=== PATIENT | female | born 2000 | race Caucasian/White ===

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

== ENCOUNTER 2018-04-08 14:03 | Emergency (ER) | payer OTHER ==
[~2018-04-08] VITALS: Ht 157.5 cm; Wt 70.0 kg
[~2018-04-08 14:03] MED LIST changes: +CIPROFLOXACN500 MG PO
[2018-04-08] MEDS ORDERED: TRIAMCINOLON0.11 EX (14:44)
[2018-04-08 14:50] VITALS: BP 101/62
== END 2018-04-08 14:50 | disposition home or self-care (01) | DRG 607 ==
LOC: ED 14:03
DX: L25.9 Unspecified contact dermatitis, unspecified cause (principal)

== ENCOUNTER 2018-05-28 16:04 | Emergency (ER) | payer OTHER ==
[~2018-05-28] VITALS: Ht 157.5 cm; Wt 73.6 kg
[~2018-05-28 16:04] MED LIST changes: +TRIAMCINOLON0.11 EX
[2018-05-28 16:40] VITALS: BP 104/61
== END 2018-05-28 16:40 | disposition home or self-care (01) | DRG 607 ==
LOC: ED 16:04
DX: L29.9 Pruritus, unspecified (principal); V48.6XXA Car passenger injured in noncollision transport accident in traffic accident, initial encounter

== ENCOUNTER 2019-02-13 14:15 | Emergency (ER) | payer OTHER ==
[~2019-02-13] VITALS: Ht 157.5 cm; Wt 70.0 kg
[2019-02-13] MEDS ORDERED: NAPROSYN500 MG PO (15:02)
[2019-02-13 15:04] VITALS: BP 98/46
== END 2019-02-13 15:11 | disposition home or self-care (01) | DRG 563 ==
LOC: ED 14:15
DX: S93.602A Unspecified sprain of left foot, initial encounter (principal); W18.30XA Fall on same level, unspecified, initial encounter; Y93.89 Activity, other specified; Y92.009 Unspecified place in unspecified non-institutional (private) residence as the place of occurrence of the external cause

== ENCOUNTER 2019-06-30 12:49 | Emergency (ER) | payer OTHER ==
[~2019-06-30] VITALS: Ht 157.5 cm; Wt 75.0 kg
[2019-06-30 13:36] LABS: IMMATURE GRANULOCYTES 0.4 % (0.0-5.0); MEAN CORPUSCULAR HGB 29.8 pG CALC (26.0-32.0); MEAN CORPUSCULAR HGB CONC 33.1 g/L CALC (32.0-36.0); NEUT# 5.44 thou/uL (2.00-7.15); RED BLOOD COUNT 4.67 mill/uL (4.20-5.60); RED CELL DISTRI WIDTH 12.3 % (11.5-15.5)
[2019-06-30 13:41] LABS: URINE BILIRUBIN - DIPSTICK NEGATIVE (NEGATIVE); URINE BLOOD DIPSTICK SMALL (NEGATIVE); URINE COLOR YELLOW; URINE GLUCOSE - DIPSTICK NEGATIVE (NEGATIVE); URINE KETONE NEGATIVE (NEGATIVE); URINE LEUK ESTERASE NEGATIVE (NEGATIVE); URINE NITRITE - DIPSTICK NEGATIVE (Negative); URINE PROTEIN - DIPSTICK NEGATIVE (NEG-TRACE); URINE UROBILINOGEN - DIPSTICK 0.2 E.U./dL (0.2)
[2019-06-30 13:42] LABS: HEMOGLOBIN 13.9 g/dl (12.0-16.0); MEAN CELL VOLUME 89.9 fL CALC (80.0-100.0)
[2019-06-30 13:51] LABS: BUN 9 mg/dL (7-17); BUN/CREATININE RATIO 13 (12-20 (CALC)); CHLORIDE 107 mmol/l (95-108); CREATININE 0.7 mg/dL (0.5-1.0); GFR > 60 ML/MIN (>=60 (CALC)); GFR FOR AFR.AMER. > 60 ML/MIN (>=60 (CALC)); POTASSIUM 4.3 mmol/l (3.5-5.1); SODIUM 140 mmol/l (137-146)
[2019-06-30 13:53] LABS: ANION GAP 10 (6-22 (CALC)); CARBON DIOXIDE 27 mmol/l (22-30)
[2019-06-30 14:30] LABS: URINE SQUAMOUS EPITHELIAL CELL FEW EPI/hpf (0-FEW)
[2019-06-30 16:20] VITALS: BP 113/86
== END 2019-06-30 16:30 | disposition home or self-care (01) ==
LOC: ED 12:49
PROVIDERS: Family Medicine
DX: N93.9 Abnormal uterine and vaginal bleeding, unspecified (principal)

== ENCOUNTER 2019-12-15 | Emergency (ER) | payer SELFPAY ==
[2019-12-15 21:42] LABS: URINE BILIRUBIN - DIPSTICK NEGATIVE (NEGATIVE); URINE BLOOD DIPSTICK NEGATIVE (NEGATIVE); URINE CLARITY CLEAR; URINE COLOR YELLOW; URINE GLUCOSE - DIPSTICK NEGATIVE (NEGATIVE); URINE KETONE NEGATIVE (NEGATIVE); URINE LEUK ESTERASE NEGATIVE (Negative); URINE NITRITE - DIPSTICK NEGATIVE (Negative); URINE PH 7.5 (4.5-8.0); URINE PROTEIN - DIPSTICK NEGATIVE (NEG-TRACE); URINE UROBILINOGEN - DIPSTICK 0.2 E.U./dL (0.2)
[2019-12-15 22:19] LABS: HEMATOCRIT 40.4 % (37.0-47.0); HEMOGLOBIN 13.5 g/dl (12.0-16.0); IMMATURE GRANULOCYTES 0.1 % (0.0-5.0); MEAN CELL VOLUME 88.6 fL CALC (80.0-100.0); MEAN CORPUSCULAR HGB 29.6 pG CALC (26.0-32.0); MEAN CORPUSCULAR HGB CONC 33.4 g/dL CAL (32.0-36.0); NEUT# 6.86 thou/uL (2.00-7.15); RED BLOOD COUNT 4.56 mill/uL (4.20-5.60); RED CELL DISTRI WIDTH 12.4 % (11.5-15.5)
[2019-12-15 22:46] LABS: ALBUMIN 4.2 g/dL (3.2-5.0); ALKALINE PHOSPHATASE 64 u/l (38-126); ANION GAP 10 (6-22 (CALC)); BUN 6 mg/dL (7-17); BUN/CREATININE RATIO 11 (12-20 (CALC)); CARBON DIOXIDE 26 mmol/l (22-30); CHLORIDE 105 mmol/l (95-108); CREATININE 0.6 mg/dL (0.5-1.0); GFR > 60 ML/MIN (>=60 (CALC)); GFR FOR AFR.AMER. > 60 ML/MIN (>=60 (CALC)); POTASSIUM 3.8 mmol/l (3.5-5.1); SGOT/AST 23 u/l (14-36); SODIUM 137 mmol/l (137-146); TOTAL PROTEIN 6.7 g/dL (6.3-8.2)
[2019-12-15 22:48] LABS: BILIRUBIN, TOTAL 0.9 mg/dL (0.0-1.4)
[2019-12-15 23:03] LABS: BETA-HCG, QUANT(RESULT NUMBER) 1144 mIU/mL
== END 2019-12-15 23:20 | disposition home or self-care (01) | DRG 833 ==
PROVIDERS: Emergency Medicine
DX: O46.91 Antepartum hemorrhage, unspecified, first trimester (principal); Z3A.00 Weeks of gestation of pregnancy not specified

== ENCOUNTER 2020-11-15 11:15 | Emergency (ER) | payer SELFPAY ==
[~2020-11-15] VITALS: Ht 160 cm; Wt 60.0 kg
[2020-11-15] MEDS ORDERED: AMOX/K CLAV875 M1 PO (12:26)
[2020-11-15 12:45] VITALS: BP 112/74
== END 2020-11-15 12:45 | disposition home or self-care (01) | DRG 153 ==
LOC: ED 11:15
DX: J06.9 Acute upper respiratory infection, unspecified (principal); H72.91 Unspecified perforation of tympanic membrane, right ear; Z20.822 Contact with and (suspected) exposure to COVID-19; Z20.828 Contact with and (suspected) exposure to other viral communicable diseases

== ENCOUNTER 2020-11-22 21:38 | Emergency (ER) | payer SELFPAY ==
[~2020-11-22] VITALS: Ht 160 cm; Wt 59.0 kg
[~2020-11-22 21:38] MED LIST changes: +AMOX/K CLAV875 M1 PO
[2020-11-22 23:35] VITALS: BP 102/60
== END 2020-11-22 23:35 | disposition home or self-care (01) | DRG 605 ==
LOC: ED 21:38
DX: S50.02XA Contusion of left elbow, initial encounter (principal); W01.0XXA Fall on same level from slipping, tripping and stumbling without subsequent striking against object, initial encounter; Y92.89 Other specified places as the place of occurrence of the external cause; Y99.0 Civilian activity done for income or pay

== ENCOUNTER 2021-04-04 23:18 | Emergency (ER) | payer MEDICAID ==
[2021-04-05 00:25] LABS: ALBUMIN 4.4 g/dL (3.2-5.0); ALKALINE PHOSPHATASE 47 u/l (38-126); AMYLASE 61 u/l (30-110); ANION GAP 11 (6-22 (CALC)); BUN 7 mg/dL (7-17); BUN/CREATININE RATIO 11 (12-20 (CALC)); CARBON DIOXIDE 25 mmol/l (22-30); CHLORIDE 107 mmol/l (95-108); CREATININE 0.6 mg/dL (0.5-1.0); GFR > 60 ML/MIN (>=60 (CALC)); GFR FOR AFR.AMER. > 60 ML/MIN (>=60 (CALC)); LIPASE 77 u/l (23-300); POTASSIUM 3.5 mmol/l (3.5-5.1); SGOT/AST 24 u/l (14-36); SODIUM 139 mmol/l (137-146)
[2021-04-05 00:37] LABS: HEMATOCRIT 40.2 % (37.0-47.0); HEMOGLOBIN 13.2 g/dl (12.0-16.0); IMMATURE GRANULOCYTES 0.2 % (0.0-5.0); MEAN CORPUSCULAR HGB 30.2 pG CALC (26.0-32.0); MEAN CORPUSCULAR HGB CONC 32.8 g/dL CAL (32.0-36.0); NEUT# 5.93 thou/uL (2.00-7.15); RED BLOOD COUNT 4.37 mill/uL (4.20-5.60); RED CELL DISTRI WIDTH 11.8 % (11.5-15.5); URINE BILIRUBIN - DIPSTICK NEGATIVE (NEGATIVE); URINE BLOOD DIPSTICK NEGATIVE (NEGATIVE); URINE COLOR YELLOW; URINE GLUCOSE - DIPSTICK NEGATIVE (NEGATIVE); URINE KETONE 15 mg/dL (NEGATIVE); URINE LEUK ESTERASE NEGATIVE (NEGATIVE); URINE NITRITE - DIPSTICK NEGATIVE (Negative); URINE PROTEIN - DIPSTICK NEGATIVE (NEG-TRACE); URINE SPECIFIC GRAVITY >=1.030
[2021-04-05 02:42] VITALS: BP 101/60
== END 2021-04-05 02:42 | disposition home or self-care (01) | DRG 833 ==
LOC: ED 23:18
PROVIDERS: Emergency Medicine
DX: O26.899 Other specified pregnancy related conditions, unspecified trimester (principal); R10.9 Unspecified abdominal pain; Z3A.00 Weeks of gestation of pregnancy not specified

== ENCOUNTER 2021-04-09 20:38 | Emergency (ER) | payer MEDICAID ==
[2021-04-09 21:26] LABS: HEMATOCRIT 41.1 % (37.0-47.0); HEMOGLOBIN 13.7 g/dl (12.0-16.0); IMMATURE GRANULOCYTES 0.1 % (0.0-5.0); MEAN CELL VOLUME 91.9 fL CALC (80.0-100.0); MEAN CORPUSCULAR HGB 30.6 pG CALC (26.0-32.0); MEAN CORPUSCULAR HGB CONC 33.3 g/dL CAL (32.0-36.0); NEUT# 6.14 thou/uL (2.00-7.15); RED BLOOD COUNT 4.47 mill/uL (4.20-5.60); RED CELL DISTRI WIDTH 11.6 % (11.5-15.5)
[2021-04-09 21:27] LABS: URINE BILIRUBIN - DIPSTICK NEGATIVE (NEGATIVE); URINE BLOOD DIPSTICK MODERATE (NEGATIVE); URINE COLOR YELLOW; URINE GLUCOSE - DIPSTICK NEGATIVE (NEGATIVE); URINE KETONE NEGATIVE (NEGATIVE); URINE LEUK ESTERASE NEGATIVE (NEGATIVE); URINE PROTEIN - DIPSTICK NEGATIVE (NEG-TRACE); URINE SPECIFIC GRAVITY 1.025; URINE UROBILINOGEN - DIPSTICK 0.2 E.U./dL (0.2)
[2021-04-09 21:28] LABS: URINE NITRITE - DIPSTICK NEGATIVE (Negative)
[2021-04-09 21:33] LABS: URINE SQUAMOUS EPITHELIAL CELL FEW EPI/hpf (0-FEW); URINE WBC 0-2 WBC/hpf (0-5)
[2021-04-09 21:44] LABS: ALBUMIN 4.3 g/dL (3.2-5.0); ALKALINE PHOSPHATASE 49 u/l (38-126); ANION GAP 12 (6-22 (CALC)); BILIRUBIN, TOTAL 0.7 mg/dL (0.0-1.4); BUN 7 mg/dL (7-17); BUN/CREATININE RATIO 10 (12-20 (CALC)); CARBON DIOXIDE 27 mmol/l (22-30); CHLORIDE 101 mmol/l (95-108); CREATININE 0.7 mg/dL (0.5-1.0); GFR > 60 ML/MIN (>=60 (CALC)); GFR FOR AFR.AMER. > 60 ML/MIN (>=60 (CALC)); POTASSIUM 3.5 mmol/l (3.5-5.1); SGOT/AST 21 u/l (14-36); SODIUM 137 mmol/l (137-146); TOTAL PROTEIN 6.8 g/dL (6.3-8.2)
[2021-04-09 22:01] LABS: BETA-HCG, QUANT(RESULT NUMBER) 193 mIU/mL
[2021-04-09 23:35] VITALS: BP 98/54
== END 2021-04-09 23:33 | disposition home or self-care (01) | DRG 833 ==
LOC: ED 20:38
PROVIDERS: Emergency Medicine
DX: O20.0 Threatened abortion (principal); Z3A.01 Less than 8 weeks gestation of pregnancy

== ENCOUNTER 2021-04-13 14:01 | Emergency (ER) | payer MEDICAID ==
[2021-04-13 14:35] VITALS: BP 108/59
[2021-04-13 15:10] LABS: HEMATOCRIT 40.3 % (37.0-47.0); HEMOGLOBIN 13.2 g/dl (12.0-16.0); IMMATURE GRANULOCYTES 0.1 % (0.0-5.0); MEAN CELL VOLUME 92.2 fL CALC (80.0-100.0); MEAN CORPUSCULAR HGB 30.2 pG CALC (26.0-32.0); MEAN CORPUSCULAR HGB CONC 32.8 g/dL CAL (32.0-36.0); NEUT# 4.76 thou/uL (2.00-7.15); RED BLOOD COUNT 4.37 mill/uL (4.20-5.60); RED CELL DISTRI WIDTH 11.5 % (11.5-15.5)
[2021-04-13 15:28] LABS: ALBUMIN 3.9 g/dL (3.2-5.0); ALKALINE PHOSPHATASE 51 u/l (38-126); ANION GAP 10 (6-22 (CALC)); BILIRUBIN, TOTAL 0.7 mg/dL (0.0-1.4); BUN 9 mg/dL (7-17); BUN/CREATININE RATIO 10 (12-20 (CALC)); CARBON DIOXIDE 26 mmol/l (22-30); CHLORIDE 105 mmol/l (95-108); GFR > 60 ML/MIN (>=60 (CALC)); GFR FOR AFR.AMER. > 60 ML/MIN (>=60 (CALC)); POTASSIUM 4.1 mmol/l (3.5-5.1); SGOT/AST 20 u/l (14-36); SODIUM 138 mmol/l (137-146); TOTAL PROTEIN 6.4 g/dL (6.3-8.2)
[2021-04-13 15:45] LABS: BETA-HCG, QUANT(RESULT NUMBER) 32 mIU/mL
== END 2021-04-13 16:50 | disposition home or self-care (01) | DRG 779 ==
LOC: ED 14:01
PROVIDERS: Emergency Medicine
DX: O03.9 Complete or unspecified spontaneous abortion without complication (principal)

== ENCOUNTER 2021-07-15 09:05 | Emergency (ER) | payer MEDICAID ==
[~2021-07-15] VITALS: Ht 157.5 cm; Wt 70.0 kg
[2021-07-15 10:01] LABS: URINE BILIRUBIN - DIPSTICK NEGATIVE (NEGATIVE); URINE BLOOD DIPSTICK NEGATIVE (NEGATIVE); URINE COLOR YELLOW; URINE GLUCOSE - DIPSTICK NEGATIVE (NEGATIVE); URINE KETONE 40 mg/dL (NEGATIVE); URINE LEUK ESTERASE NEGATIVE (NEGATIVE); URINE PH 6.5 (4.5-8.0); URINE PROTEIN - DIPSTICK NEGATIVE (NEG-TRACE); URINE UROBILINOGEN - DIPSTICK 0.2 E.U./dL (0.2)
[2021-07-15 10:03] LABS: URINE NITRITE - DIPSTICK NEGATIVE (Negative)
[2021-07-15 10:12] LABS: HEMATOCRIT 39.8 % (37.0-47.0); HEMOGLOBIN 13.8 g/dl (12.0-16.0); IMMATURE GRANULOCYTES 0.2 % (0.0-5.0); MEAN CELL VOLUME 88.8 fL CALC (80.0-100.0); MEAN CORPUSCULAR HGB 30.8 pG CALC (26.0-32.0); MEAN CORPUSCULAR HGB CONC 34.7 g/dL CAL (32.0-36.0); NEUT# 5.88 thou/uL (2.00-7.15); RED BLOOD COUNT 4.48 mill/uL (4.20-5.60); RED CELL DISTRI WIDTH 11.9 % (11.5-15.5)
[2021-07-15 10:55] LABS: ALBUMIN 4.2 g/dL (3.2-5.0); ALKALINE PHOSPHATASE 40 u/l (38-126); ANION GAP 12 (6-22 (CALC)); BUN 6 mg/dL (7-17); BUN/CREATININE RATIO 11 (12-20 (CALC)); CARBON DIOXIDE 24 mmol/l (22-30); CHLORIDE 104 mmol/l (95-108); CREATININE 0.6 mg/dL (0.5-1.0); GFR > 60 ML/MIN (>=60 (CALC)); GFR FOR AFR.AMER. > 60 ML/MIN (>=60 (CALC)); POTASSIUM 3.7 mmol/l (3.5-5.1); SGOT/AST 20 u/l (14-36); SODIUM 137 mmol/l (137-146); TOTAL PROTEIN 6.6 g/dL (6.3-8.2)
[2021-07-15 11:14] LABS: BILIRUBIN, TOTAL 1.5 mg/dL (0.0-1.4)
[2021-07-15] MEDS ORDERED: REGLAN10 MG PO (12:44)
[2021-07-15 12:51] VITALS: BP 92/51
== END 2021-07-15 13:00 | disposition home or self-care (01) ==
LOC: ED 09:05
PROVIDERS: Family Medicine
DX: O26.899 Other specified pregnancy related conditions, unspecified trimester (principal); R10.13 Epigastric pain; R11.2 Nausea with vomiting, unspecified; Z3A.00 Weeks of gestation of pregnancy not specified

== ENCOUNTER 2021-08-03 08:30 | Emergency (ER) | payer OTHER ==
[~2021-08-03] VITALS: Ht 157.5 cm; Wt 47.8 kg
[~2021-08-03 08:30] MED LIST changes: +REGLAN10 MG PO
[2021-08-03] MEDS ORDERED: PRENATA3 PO (09:03)
[2021-08-03 09:29] LABS: HEMATOCRIT 36.4 % (37.0-47.0); HEMOGLOBIN 12.5 g/dl (12.0-16.0); IMMATURE GRANULOCYTES 0.1 % (0.0-5.0); MEAN CELL VOLUME 88.6 fL CALC (80.0-100.0); MEAN CORPUSCULAR HGB 30.4 pG CALC (26.0-32.0); MEAN CORPUSCULAR HGB CONC 34.3 g/dL CAL (32.0-36.0); NEUT# 6.33 thou/uL (2.00-7.15); RED BLOOD COUNT 4.11 mill/uL (4.20-5.60); RED CELL DISTRI WIDTH 11.8 % (11.5-15.5)
[2021-08-03 09:30] LABS: URINE BILIRUBIN - DIPSTICK NEGATIVE (NEGATIVE); URINE BLOOD DIPSTICK NEGATIVE (NEGATIVE); URINE COLOR YELLOW; URINE GLUCOSE - DIPSTICK NEGATIVE (NEGATIVE); URINE KETONE NEGATIVE (NEGATIVE); URINE PROTEIN - DIPSTICK NEGATIVE (NEG-TRACE); URINE UROBILINOGEN - DIPSTICK 0.2 E.U./dL (0.2)
[2021-08-03 09:31] LABS: URINE LEUK ESTERASE SMALL (NEGATIVE); URINE NITRITE - DIPSTICK NEGATIVE (Negative); URINE SQUAMOUS EPITHELIAL CELL MODERATE EPI/hpf (0-FEW)
[2021-08-03 09:32] LABS: URINE AMORPH SEDIMENT MODERATE hpf (NONE-FEW)
[2021-08-03 09:49] LABS: ALBUMIN 3.9 g/dL (3.2-5.0); ALKALINE PHOSPHATASE 43 u/l (38-126); ANION GAP 9 (6-22 (CALC)); BUN 6 mg/dL (7-17); BUN/CREATININE RATIO 12 (12-20 (CALC)); CARBON DIOXIDE 27 mmol/l (22-30); CHLORIDE 105 mmol/l (95-108); CREATININE 0.5 mg/dL (0.5-1.0); GFR > 60 ML/MIN (>=60 (CALC)); GFR FOR AFR.AMER. > 60 ML/MIN (>=60 (CALC)); LIPASE 103 u/l (23-300); POTASSIUM 3.8 mmol/l (3.5-5.1); SGOT/AST 23 u/l (14-36); SODIUM 137 mmol/l (137-146); TOTAL PROTEIN 6.5 g/dL (6.3-8.2)
[2021-08-03 09:51] LABS: BILIRUBIN, TOTAL 0.4 mg/dL (0.0-1.4)
[2021-08-03] MEDS ORDERED: KEFLEX500 MG PO (09:56)
[2021-08-03 09:59] VITALS: BP 98/52
== END 2021-08-03 10:06 | disposition home or self-care (01) ==
LOC: ED 08:30
DX: O23.41 Unspecified infection of urinary tract in pregnancy, first trimester (principal); N39.0 Urinary tract infection, site not specified; Z3A.08 8 weeks gestation of pregnancy

== ENCOUNTER 2022-01-13 15:48 | Emergency (ER) | payer OTHER ==
[~2022-01-13] VITALS: Ht 157.5 cm; Wt 80.0 kg
[~2022-01-13 15:48] MED LIST changes: +KEFLEX500 MG PO; +PRENATA3 PO
[2022-01-13 15:51] VITALS: BP 105/70
[2022-01-13 16:21] LABS: HEMATOCRIT 30.6 % (37.0-47.0); HEMOGLOBIN 10.4 g/dl (12.0-16.0); IMMATURE GRANULOCYTES 0.3 % (0.0-5.0); MEAN CORPUSCULAR HGB 31.6 pG CALC (26.0-32.0); RED BLOOD COUNT 3.29 mill/uL (4.20-5.60)
[2022-01-13 16:33] LABS: ALBUMIN 3.2 g/dL (3.2-5.0); ALKALINE PHOSPHATASE 84 u/l (38-126); ANION GAP 10 (6-22 (CALC)); BILIRUBIN, TOTAL 0.2 mg/dL (0.0-1.4); BUN 5 mg/dL (7-17); BUN/CREATININE RATIO 11 (12-20 (CALC)); CARBON DIOXIDE 21 mmol/l (22-30); CHLORIDE 108 mmol/l (95-108); CREATININE 0.4 mg/dL (0.5-1.0); GFR > 60 ML/MIN (>=60 (CALC)); GFR FOR AFR.AMER. > 60 ML/MIN (>=60 (CALC)); LIPASE 106 u/l (23-300); POTASSIUM 3.5 mmol/l (3.5-5.1); SGOT/AST 19 u/l (14-36); SODIUM 135 mmol/l (137-146); TOTAL PROTEIN 5.8 g/dL (6.3-8.2)
[2022-01-13 16:50] LABS: BETA-HCG, QUANT(RESULT NUMBER) 873 mIU/mL
[2022-01-13 17:36] VITALS: BP 105/70
== END 2022-01-13 17:42 | disposition home or self-care (01) | DRG 833 ==
LOC: ED 15:48
PROVIDERS: Family Medicine
DX: O99.891 Other specified diseases and conditions complicating pregnancy (principal); M54.50 Low back pain, unspecified; V59.50XA Passenger in pick-up truck or van injured in collision with unspecified motor vehicles in traffic accident, initial encounter; Z3A.31 31 weeks gestation of pregnancy

== ENCOUNTER 2023-05-10 20:07 | Emergency (ER) | payer SELFPAY ==
[~2023-05-10] VITALS: Ht 157.5 cm; Wt 77.1 kg
[2023-05-10 23:20] VITALS: BP 113/64
== END 2023-05-10 23:20 | disposition home or self-care (01) | DRG 153 ==
LOC: ED 20:07
DX: J02.9 Acute pharyngitis, unspecified (principal); R05.9 Cough, unspecified

== ENCOUNTER 2024-03-09 12:32 | Emergency (ER) | payer SELFPAY ==
[2024-03-09] VITALS (8 sets, daily range): BP systolic 86–102; BP diastolic 36–60
[~2024-03-09] VITALS: Ht 157.5 cm; Wt 77.3 kg
== END 2024-03-09 14:52 | disposition home or self-care (01) | DRG 563 ==
LOC: ED 12:32
DX: S66.911A Strain of unspecified muscle, fascia and tendon at wrist and hand level, right hand, initial encounter (principal); X50.0XXA Overexertion from strenuous movement or load, initial encounter; Y93.F2 Activity, caregiving, lifting; Y92.210 Daycare center as the place of occurrence of the external cause; Y99.0 Civilian activity done for income or pay